=== PATIENT | female | born 1950 | race Caucasian/White ===

== ENCOUNTER → 2016-06-16 | Outpatient (CLI) | payer MEDICARE, OTHER ==
[~2016-06-16] VITALS: Ht 167.6 cm; Wt 72.6 kg
[~2016-06-16] MED LIST: ALEV220C2 PO; ALLE180T33 PO; ATEN50TA2 PO; FLUC10TA PO; IMIP10TA2 PO; MONT10TA2 PO; NS 1,000 ML IV SCH; OMEP10CASR PO; PROPOFOL 200 MG/20 ML VIAL As Ordered ONE; TUMS500C PO; VITA500046 PO; VITAMIN D PO
--- NOTE | 2016-06-16 11:01 | ROOR ---
Patient Name: Cass Winston Procedure Date: 06/16/2016 10:14 AM Date of : 1950 Age: 65 Room: [facility] Gender: Female Note Status: Finalized Procedure: Colonoscopy to Cecum + Biopsy Polypectomy + Hemoclips Indications: High risk colon cancer surveillance: Personal history of adenoma with villous component Providers: Chas Teresa MD Referring MD: Fozia COLE MD Requesting Provider: Medicines: Monitored Anesthesia Care Complications: No immediate complications. Procedure: Pre-Anesthesia Assessment: - The heart rate, respiratory rate, oxygen saturations, blood pressure, adequacy of pulmonary ventilation, and response to care were monitored throughout the procedure. The Colonoscope was introduced through the anus and advanced to the cecum, identified by appendiceal orifice and ileocecal valve. The colonoscopy was performed without difficulty. The patient tolerated the procedure well. The quality of the bowel preparation was excellent. Findings: The perianal and digital rectal examinations were normal. Non-bleeding internal hemorrhoids were found during retroflexion. The hemorrhoids were small and Grade I (internal hemorrhoids that do not prolapse). Multiple small and large-mouthed diverticula were found in the recto-sigmoid colon, sigmoid colon and descending colon. A large polyp was found in the mid ascending colon. The polyp was carpet-like. The polyp was removed with a jumbo cold forceps. Resection and retrieval were complete. To close a defect after polypectomy, three hemostatic clips were successfully placed (MR conditional) in the mid ascending colon. There was no bleeding at the end of the procedure. The exam was otherwise without abnormality on direct and retroflexion views. Impression: - Non-bleeding internal hemorrhoids. - Diverticulosis in the recto-sigmoid colon, in the sigmoid colon and in the descending colon. - One large polyp in the mid ascending colon, removed with a jumbo cold forceps. Resected and retrieved. - The examination was otherwise normal on direct and retroflexion views. - Three hemostatic clips were successfully placed (MR conditional) in the mid ascending colon. - The exam was otherwise normal to the cecum. Recommendation: - Patient has a contact number available for emergencies. The signs and symptoms of potential delayed complications were discussed with the patient. Return to normal activities tomorrow. Written discharge instructions were provided to the patient. - High fiber diet. - Discharge patient to home. - Continue present medications. - Await pathology results. - Telephone GI clinic for pathology results in 1 week. - Repeat colonoscopy in 1 year for surveillance based on pathology results. - Return to referring physician. - The findings and recommendations were discussed with the patient's family. Chas Teresa MD Chas Teresa MD 06/16/2016 11:01:04 AM This report has been signed electronically. Number of Addenda: 0 Note Initiated On: 06/16/2016 10:14 AM Estimated Blood Loss: Estimated blood loss: none.
[2016-06-16 11:30] VITALS: BP 157/98
== END | disposition home or self-care (01) ==
LOC: M OPP 08:55
PROVIDERS: ATTEND Internal Medicine Gastroenterology
DX: Z09 Encounter for follow-up examination after completed treatment for conditions other than malignant neoplasm (principal); D12.2 Benign neoplasm of ascending colon; K64.0 First degree hemorrhoids; K57.30 Diverticulosis of large intestine without perforation or abscess without bleeding; Z86.010 Personal history of colon polyps; R12 Heartburn; R00.8 Other abnormalities of heart beat; K44.9 Diaphragmatic hernia without obstruction or gangrene; K21.9 Gastro-esophageal reflux disease without esophagitis; F41.9 Anxiety disorder, unspecified; H26.9 Unspecified cataract; Z78.0 Asymptomatic menopausal state; Z79.899 Other long term (current) drug therapy

== ENCOUNTER → 2016-08-26 | Outpatient (CLI) | payer MEDICARE, OTHER ==
[~2016-08-26] MED LIST changes: -NS 1,000 ML IV SCH; -PROPOFOL 200 MG/20 ML VIAL As Ordered ONE
--- NOTE | 2016-08-26 14:39 | REPMRS ---
Patient History The patient states she had a clinical breast exam in Patient is postmenopausal. No known family history of cancer. Digital Woman Screen Mammo: August 26, 2016 - Exam #: [id number] Bilateral CC and MLO view(s) were taken. Technologist: Aidee Hinkle, Technologist Prior study comparison: May 25, 2013, digital woman screen mammo performed at [facility]. November 05, 2011, digital woman screen mammo performed at [facility] to [facility]. FINDINGS: The breast tissue is heterogeneously dense. This may lower the sensitivity of mammography. There has been no change in the appearance of the mammogram from the prior studies. There is a moderate amount of residual fibroglandular tissue which is fairly symmetric. There is no interval development of dominant mass, areas of architectural distortion, or clustered microcalcification typical of malignancy. ASSESSMENT: BI-RADS/ACR category 1 mammogram. Negative. Recommendation Routine screening mammogram in 1 year (for women over age 40). This mammogram was interpreted with the aid of an FDA-approved computer-aided dectection system. Electronically Signed By: Liborio Snyder MD 08/26/16 [id number]
--- NOTE | 2016-08-28 14:32 | DEXA ---
AP SPINE L1 - L4 0.969 -1.8 -0.4 LT FEMUR TOTAL 0.692 -2.5 -1.4 RT FEMUR TOTAL 0.749 -2.1 -1.0 TOTAL BODY TOTAL OTHER DUAL FEMUR FRAX* ASSESSMENT Risk factors: Family history of hip fracture. 10 year probability of fracture Major osteoporotic fracture 22.9 % Hip fracture 3.2 % COMMENTS: There is low bone density of the spine and hips. The decreased density of the spine does represent a significant change. The decreased density of the left hip does represent a significant change. The decreased density of the right hip does represent a significant change. The density of the spine has decreased 2.6% since initial exam on 10/2000. The spine density has decreased 3.7% since the most recent exam on 04/2013. The density of the left hip has decreased 4.0% since the initial exam on 10/2000. The density of the left hip has decreased 4.6% since the most recent exam on 2013. The density of the right hip has decreased 6.4% since the initial exam on 2000. The density of the right hip has decreased 4.3% since the most recent exam on 2013. FOLLOW-UP: Recommendation for the next bone density exam: 2 years. MARLENE
== END ==
LOC: M WHC 11:09
PROVIDERS: ATTEND Internal Medicine
DX: Z12.31 Encounter for screening mammogram for malignant neoplasm of breast (principal); M81.0 Age-related osteoporosis without current pathological fracture
CPT/HCPCS: 77080; G0202

== ENCOUNTER → 2016-09-04 | Outpatient (REF) | payer MEDICARE, OTHER | LOC: M LAB REF 10:20 | PROVIDERS: ATTEND Physician Assistant | DX: N39.0 Urinary tract infection, site not specified (principal) ==

== ENCOUNTER 2017-08-25 07:34 | Day surgery (SDC) | payer MEDICARE, OTHER ==
[2017-08-25] MEDS: NS 1,000 ML IV (07:57)
[2017-08-25] MEDS ORDERED: fentaNYL 100 MCG/2 ML INJECTION (J3010) As Ordered (08:34)
[2017-08-25] MEDS ORDERED: LIDOCAINE 2% INJ 100 MG/5 ML SDV (FOR ANES.) As Ordered (08:42)
[2017-08-25] MEDS ORDERED: PROPOFOL 200 MG/20 ML VIAL As Ordered ×3 (08:56→09:16)
== END 2017-08-25 10:20 | disposition home or self-care (01) ==
LOC: M OPP 07:34
DX: Z09 Encounter for follow-up examination after completed treatment for conditions other than malignant neoplasm (principal); Z86.010 Personal history of colon polyps; K64.0 First degree hemorrhoids; D12.2 Benign neoplasm of ascending colon; K57.30 Diverticulosis of large intestine without perforation or abscess without bleeding; K82.9 Disease of gallbladder, unspecified; I10 Essential (primary) hypertension; K44.9 Diaphragmatic hernia without obstruction or gangrene; R42 Dizziness and giddiness; E55.9 Vitamin D deficiency, unspecified; I49.9 Cardiac arrhythmia, unspecified; Z79.899 Other long term (current) drug therapy; Z78.0 Asymptomatic menopausal state
CPT/HCPCS: 45385

== ENCOUNTER 2017-12-28 08:00 | Day surgery (SDC) | payer MEDICARE, OTHER ==
[2017-12-28] MEDS: NS 1,000 ML IV (06:00)
[2017-12-28] MEDS ORDERED: PROPOFOL 500 MG/50 ML VIAL As Ordered (09:08)
[2017-12-28] MEDS ORDERED: LIDOCAINE 2% INJ 100 MG/5 ML SDV (FOR ANES.) As Ordered (09:08)
== END 2017-12-28 10:12 | disposition home or self-care (01) ==
LOC: M OPP 08:00
DX: Z09 Encounter for follow-up examination after completed treatment for conditions other than malignant neoplasm (principal); D49.0 Neoplasm of unspecified behavior of digestive system; Z86.010 Personal history of colon polyps; K22.0 Achalasia of cardia; D12.2 Benign neoplasm of ascending colon; K57.30 Diverticulosis of large intestine without perforation or abscess without bleeding; K64.0 First degree hemorrhoids; R00.0 Tachycardia, unspecified; R00.8 Other abnormalities of heart beat; K21.9 Gastro-esophageal reflux disease without esophagitis; R12 Heartburn; F41.9 Anxiety disorder, unspecified; R42 Dizziness and giddiness; K44.9 Diaphragmatic hernia without obstruction or gangrene; H25.9 Unspecified age-related cataract; Z78.0 Asymptomatic menopausal state; Z79.899 Other long term (current) drug therapy
CPT/HCPCS: 45380

== ENCOUNTER → 2018-02-11 | Outpatient (CLI) | payer MEDICARE, OTHER | LOC: M WHC 14:01 | DX: Z12.31 Encounter for screening mammogram for malignant neoplasm of breast (principal); N60.31 Fibrosclerosis of right breast; N60.32 Fibrosclerosis of left breast | CPT/HCPCS: 77067 ==

== ENCOUNTER → 2019-04-21 | Outpatient (CLI) | payer MEDICARE, OTHER ==
[~2019-04-21] MED LIST changes: +PANT40TA3; +VITA100067 PO
--- NOTE | 2019-04-21 10:12 | REPMRS ---
Patient History The patient states she had a clinical breast exam in November 2018.No known family history of cancer. Digital Woman Screen Mammo: April 21, 2019 - Exam #: [id number] Bilateral CC and MLO view(s) were taken. Technologist: Jazmine King, Technologist Prior study comparison: February 11, 2018, bilateral digital woman screen mammo performed at [facility]. August 26, 2016, digital woman screen mammo performed at [facility]. May 25, 2013, digital woman screen mammo performed at [facility]. FINDINGS: The breast tissue is heterogeneously dense. This may lower the sensitivity of mammography. There is a moderate amount of heterogeneously dense fibroglandular tissue which is fairly symmetric. There is no interval development of dominant mass, architectural distortion, or grouped microcalcification typical of malignancy. There has been no change in the appearance of the mammogram from the prior studies. 3-D tomosynthesis shows no additional findings. Assessment: BI-RADS/ACR category 1 mammogram. Negative Mammogram. Recommendation Routine screening mammogram of both breasts in 1 year (for women over age 40). This patient's Lifetime Breast Cancer RIsk is estimated at 7.4 %. This mammogram was interpreted with the aid of an FDA-approved computer-aided dectection system. Electronically Signed By: Alvarez Bryant MD 04/21/19 1015
== END ==
LOC: M WHC 08:42
PROVIDERS: ATTEND Internal Medicine
DX: Z12.31 Encounter for screening mammogram for malignant neoplasm of breast (principal)

== ENCOUNTER → 2019-08-29 | Outpatient (CLI) | payer MEDICARE, OTHER ==
[~2019-08-29] MED LIST changes: -MONT10TA2 PO; +MONT10TA4 PO
--- NOTE | 2019-08-31 15:45 | DEXA ---
AP SPINE L1 - L4 1.075 -0.9 0.8 LT FEMUR TOTAL 0.709 -2.4 -1.0 LT NECK 0.719 -2.3 -0.7 RT FEMUR TOTAL 0.791 -1.7 -0.3 RT NECK 0.721 -2.3 -0.6 TOTAL BODY TOTAL OTHER COMMENTS: Normal bone densitometry of the spine. There is low bone density of the hips. The increased density of the spine does represent a significant change. The increased density of the left hip does represent a significant change. The increased density of the right hip does represent a significant change. The density of the spine is increased 8.0% since the initial exam on 11/11/2000. The increased 10.9% since the most recent exam on 11/26/2016. The density of the left hip has decreased 1.7% since the initial exam on 11/11/2000. The density of the left hip has increased 2.5% since the most recent exam on 08/26/2016. The density of the right hip has decreased 1.1% since the initial exam on 11/11/2000. The density of the right hip has increased 5.6% since the most recent exam on 08/26/2016. FOLLOW-UP: Recommendation for the next bone density exam: 2 years. MARLENE
== END ==
LOC: M WHC 13:24
PROVIDERS: ATTEND Nurse Practitioner Family
DX: M81.0 Age-related osteoporosis without current pathological fracture (principal)

== ENCOUNTER → 2019-11-13 | Outpatient (REF) | payer MEDICARE, OTHER ==
[~2019-11-13] MED LIST changes: +PANT40TA29; -PANT40TA3
[2019-11-16 18:07] LABS: Lyme Disease IgG/IgM Antibodie <0.91 ISR (0.00-0.90); Lyme Disease IgM Ab Quantitati <0.80 index (0.00-0.79)
== END ==
LOC: M LAB REF 12:06
PROVIDERS: ATTEND Internal Medicine
DX: R21 Rash and other nonspecific skin eruption (principal)

== ENCOUNTER → 2019-12-05 | Outpatient (REF) | payer MEDICARE, OTHER ==
[2019-12-08 19:07] LABS: Lyme Disease IgG Ab 18 kDa Ban Absent (.); Lyme Disease IgG Ab 23 kDa Ban Present (.); Lyme Disease IgG Ab 28 kDa Ban Absent (.); Lyme Disease IgG Ab 30 kDa Ban Absent (.); Lyme Disease IgG Ab 39 kDa Ban Present (.); Lyme Disease IgG Ab 41 kDa Ban Absent (.); Lyme Disease IgG Ab 45 kDa Ban Absent (.); Lyme Disease IgG Ab 58 kDa Ban Present (.); Lyme Disease IgG Ab 66 kDa Ban Absent (.); Lyme Disease IgG Ab 93 kDa Ban Present (.); Lyme Disease IgG West Blot Int Negative (.); Lyme Disease IgG/IgM Antibodie <0.91 ISR (0.00-0.90); Lyme Disease IgM Ab 23 kDa Ban Absent (.); Lyme Disease IgM Ab 39 kDa Ban Absent (.); Lyme Disease IgM Ab 41 kDa Ban Absent (.); Lyme Disease IgM Ab Quantitati 1.39 index (0.00-0.79); Lyme Disease IgM West Blot Int Negative (.)
== END ==
LOC: M LAB REF 19:12
PROVIDERS: ATTEND Internal Medicine
DX: R21 Rash and other nonspecific skin eruption (principal)

== ENCOUNTER 2019-12-12 13:00 | Outpatient (CLI) | payer MEDICARE, OTHER ==
[~2019-12-12] VITALS: Ht 167.6 cm; Wt 66.8 kg
[~2019-12-12 13:00] MED LIST changes: +ZOLEDRONIC ACID 5 MG in IV 1 EA IV ONE
[2019-12-12 13:05] VITALS: BP_SYST 136; BP_DIAS 7; BP_DIAS 72
[2019-12-12] MEDS ORDERED: ZOLEDRONIC ACID 5 MG 100ML IVBAG (RECLAST)(J3489 PER 1MG) As Ordered ONE (13:16)
[2019-12-12 14:13] VITALS: BP 125/61
== END 2019-12-12 14:15 | disposition home or self-care (01) ==
LOC: M INFU 13:00
PROVIDERS: ATTEND Internal Medicine Endocrinology, Diabetes & Metabolism
DX: M81.0 Age-related osteoporosis without current pathological fracture (principal)
CPT/HCPCS: 96365; J3489

== ENCOUNTER → 2020-05-09 | Outpatient (CLI) | payer MEDICARE, OTHER ==
[~2020-05-09] MED LIST changes: +MONT10TA10 PO; -MONT10TA4 PO; -ZOLEDRONIC ACID 5 MG in IV 1 EA IV ONE
--- NOTE | 2020-05-09 12:04 | REPMRS ---
Patient History The patient states she had a clinical breast exam in November 2019. No known family history of cancer. Digital Woman Screen Mammo: May 09, 2020 - Exam #: [id number] Bilateral CC and MLO view(s) were taken. Technologist: Kaci Hernadez Technologist Prior study comparison: April 21, 2019, bilateral digital woman screen mammo performed at [facility]. February 11, 2018, bilateral digital woman screen mammo performed at [facility]. August 26, 2016, digital woman screen mammo performed at [facility]. FINDINGS: The breast tissue is heterogeneously dense. This may lower the sensitivity of mammography. The Volpara volumetric breast density category is: C. There is a moderate amount of heterogeneously dense fibroglandular tissue which is fairly symmetric. There is no interval development of dominant mass, architectural distortion, or grouped microcalcification typical of malignancy. There has been no change in the appearance of the mammogram from the prior studies. 3-D tomosynthesis shows no additional findings. Assessment: BI-RADS/ACR category 1 mammogram. Negative Mammogram. Recommendation Routine screening mammogram of both breasts in 1 year (for women over age 40). This patient's [facility] Lifetime Breast Cancer RIsk is estimated at 7.0 %. This mammogram was interpreted with the aid of an FDA-approved computer-aided dectection system. Electronically Signed By: Alvarez Bryant MD 05/09/20 [id number]
== END ==
LOC: M WHC 10:35
PROVIDERS: ATTEND Internal Medicine
DX: Z12.31 Encounter for screening mammogram for malignant neoplasm of breast (principal)

== ENCOUNTER → 2020-11-21 | Outpatient (REF) | payer MEDICARE, OTHER ==
[2020-11-21 12:39] LABS: FREE T3 2.7 PG/ML (2.2-4.0); FREE T4 0.86 NG/DL (0.76-1.46); THYROID STIMULATING HORMONE 2.06 uIU/ML (0.358-3.740)
[2020-11-22 18:10] LABS: SSA SJOGRENS A <0.2 AI (0.0-0.9); SSB SJOGRENS B <0.2 AI (0.0-0.9)
== END ==
LOC: M LAB REF 11:06
PROVIDERS: ATTEND Internal Medicine
DX: H16.221 Keratoconjunctivitis sicca, not specified as Sjogren's, right eye (principal); Z79.899 Other long term (current) drug therapy

== ENCOUNTER 2020-12-23 13:48 | Outpatient (CLI) | payer MEDICARE, OTHER ==
[~2020-12-23] VITALS: Ht 162.6 cm; Wt 65.9 kg
[~2020-12-23 13:48] MED LIST changes: +ZOLEDRONIC ACID 5 MG in IV 1 EA IV ONE
[2020-12-23 13:55] VITALS: BP 142/65
[2020-12-23 14:45] VITALS: BP 143/74
== END 2020-12-23 14:45 | disposition home or self-care (01) ==
LOC: M INFU 13:48
PROVIDERS: ATTEND Internal Medicine Endocrinology, Diabetes & Metabolism
DX: M81.0 Age-related osteoporosis without current pathological fracture (principal)
CPT/HCPCS: 96365; J3489

== ENCOUNTER → 2021-04-19 | Outpatient (REF) | payer MEDICARE, OTHER ==
[~2021-04-19] MED LIST changes: -MONT10TA10 PO; +MONT10TA97 PO; -ZOLEDRONIC ACID 5 MG in IV 1 EA IV ONE
== END ==
LOC: M WUC 17:48
PROVIDERS: ATTEND Physician Assistant
DX: R30.0 Dysuria (principal)

== ENCOUNTER → 2021-05-09 | Outpatient (REF) | payer MEDICARE, OTHER | LOC: M WUC 10:50 | PROVIDERS: ATTEND Physician Assistant | DX: N39.0 Urinary tract infection, site not specified (principal) ==

== ENCOUNTER → 2021-08-06 | Outpatient (CLI) | payer MEDICARE, OTHER ==
[~2021-08-06] MED LIST changes: +DORZ2SOL5 OU; +FEXO60TA99 PO; +TRAV2.5D OU; +VITA100093 PO
== END ==
LOC: M WHC 11:09
PROVIDERS: ATTEND Internal Medicine
DX: Z12.31 Encounter for screening mammogram for malignant neoplasm of breast (principal); Z78.0 Asymptomatic menopausal state

== ENCOUNTER → 2021-08-08 | Outpatient (CLI) | payer MEDICARE, OTHER | LOC: M LABSMTC 09:14 | PROVIDERS: ATTEND Anesthesiology | DX: Z01.818 Encounter for other preprocedural examination (principal); Z11.52 Encounter for screening for COVID-19 ==

== ENCOUNTER 2021-08-13 07:46 | Day surgery (SDC) | payer MEDICARE, OTHER ==
[~2021-08-13] VITALS: Ht 167.6 cm; Wt 68.0 kg
[~2021-08-13 07:46] MED LIST changes: +LIDOCAINE 2% 100MG/5ML SDV (FOR ANES.) As Ordered ONE; +NS 1,000 ML IV ONE; +fentaNYL 100 MCG/2 ML INJECTION As Ordered ONE; +propofoL 500 MG/50 ML VIAL As Ordered ONE
[2021-08-13 09:20] VITALS: BP 168/74
== END 2021-08-13 09:30 | disposition home or self-care (01) ==
LOC: M OPP 07:46
PROVIDERS: ATTEND Internal Medicine Gastroenterology
DX: Z12.11 Encounter for screening for malignant neoplasm of colon (principal); Z86.010 Personal history of colon polyps; D12.2 Benign neoplasm of ascending colon; K57.30 Diverticulosis of large intestine without perforation or abscess without bleeding; K64.8 Other hemorrhoids; K44.9 Diaphragmatic hernia without obstruction or gangrene; K20.0 Eosinophilic esophagitis; Z79.899 Other long term (current) drug therapy
CPT/HCPCS: 43239; 45385; 88305; J3010

== ENCOUNTER → 2021-09-19 | Outpatient (CLI) | payer MEDICARE, OTHER ==
[~2021-09-19] MED LIST changes: -LIDOCAINE 2% 100MG/5ML SDV (FOR ANES.) As Ordered ONE; -NS 1,000 ML IV ONE; -fentaNYL 100 MCG/2 ML INJECTION As Ordered ONE; -propofoL 500 MG/50 ML VIAL As Ordered ONE
== END ==
LOC: M WHC 12:45
PROVIDERS: ATTEND Internal Medicine Endocrinology, Diabetes & Metabolism
DX: M81.0 Age-related osteoporosis without current pathological fracture (principal)

== ENCOUNTER → 2021-10-13 | Outpatient (CLI) | payer MEDICARE, OTHER | LOC: M PLAIMG 10:17 | PROVIDERS: ATTEND Internal Medicine | DX: M48.02 Spinal stenosis, cervical region (principal) ==

== ENCOUNTER → 2023-01-19 | Outpatient (REF) | payer MEDICARE, OTHER | LOC: M LAB REF 16:11 | PROVIDERS: ATTEND Internal Medicine | DX: H16.223 Keratoconjunctivitis sicca, not specified as Sjogren's, bilateral (principal) ==

== ENCOUNTER → 2023-02-22 | Outpatient (REF) | payer MEDICARE, OTHER | LOC: M LAB REF 16:18 | PROVIDERS: ATTEND Internal Medicine | DX: H16.223 Keratoconjunctivitis sicca, not specified as Sjogren's, bilateral (principal) ==

== ENCOUNTER → 2023-11-25 | Outpatient (CLI) | payer MEDICARE, OTHER ==
[~2023-11-25] MED LIST changes: -IMIP10TA2 PO; +IMIP10TA4 PO
== END ==
LOC: M WHC 12:52
PROVIDERS: ATTEND Internal Medicine
DX: Z12.31 Encounter for screening mammogram for malignant neoplasm of breast (principal)

== ENCOUNTER → 2024-11-16 | Outpatient (REF) | payer MEDICARE, OTHER | LOC: M LAB REF 14:29 | PROVIDERS: ATTEND Nurse Practitioner Family | DX: R30.0 Dysuria (principal); R35.0 Frequency of micturition ==